=== PATIENT | female | born 1970 | race Caucasian/White ===

== ENCOUNTER 2020-03-24 00:09 | Outpatient (CLI) | payer BC, SELFPAY ==
[2020-03-24 19:22] LABS: SARS-CoV-2 RNA PCR Negative
== END 2020-03-24 00:10 | disposition home or self-care (01) ==
LOC: ANHCOVIDDT 00:10
PROVIDERS: Visit Provider Internal Medicine Gastroenterology
DX: Z01.818 Encounter for other preprocedural examination (principal); Z11.59 Encounter for screening for other viral diseases
CPT/HCPCS: 87635; C9803; U0003

== ENCOUNTER 2020-03-27 02:05 | Day surgery (SDC) | payer BC, SELFPAY ==
[2020-03-21 11:33] VITALS: BMI 32.5
[2020-03-27 07:45] VITALS: BP 110/70; PULSE 53; RESP 14; TEMP 36.1; O2SAT 99; BMI 33.1
--- NOTE | 2020-03-27 07:46 | PM.HPGS ---
History of Present Illness History of Present Illness Consent: Risks, benefits, and alternatives have been discussed and questions answered. Patient agrees to proceed with procedure. Chief complaint: Neoplasm Screening Narrative: Niharika Sanchez is a 49 year old W female referred for 1st screening colonoscopy. Patient is asymptomatic and there is no known family history of colon polyps or colon cancer. [facility] Family History Family History Mother Hypertension Father Family history of pancreatic cancer Other Family history of malignant neoplasm Social History Social History Smoking status: Never smoker Alcohol intake: current Meds Home Medications and Allergies Home Medications Medication Instructions Recorded Confirmed Type No Home Medications 03/21/20 03/21/20 History Allergies Allergy/AdvReac Type Severity Reaction Status Date / Time No Known Allergies Allergy Unknown Verified 03/27/20 07:45 Exam Const: Orientation/consciousness: patient oriented x3 Resp: Auscultation: clear to auscultation bilaterally Cardio: Rate: regular rate Rhythm: regular rhythm Heart sounds: no murmurs GI: GI Palp: Yes Soft to palpation, No Tenderness to palpation present (GI), Yes No hepatosplenomegaly present and No Palpable mass present Auscultation: normal bowel sounds Neuro: General: patient oriented x3 and no focal motor deficits Extrem: General: no pedal edema Assessment and Plan Additional Plan Screening colonoscopy in average risk patient
--- NOTE | 2020-03-27 07:56 | WPDANESEPPF ---
Anes - Initial Pre Proc Eval Procedure: Operation Date: 03/27/20 09:00 Proposed Procedures p Screening Colonoscopy - Junior Rodriguez MD Date/Time: 03/27/20 07:56 Surgeon: Junior Rodriguez MD Pre Op Diagnosis: Neoplasm Screening Patient Data Age: 49 Gender: F Height: 5 ft 9 in Weight: 101.9 kg Last Vital Signs Temp 36.1 C L 03/27/20 07:45 Pulse 53 L 03/27/20 07:45 Resp 14 03/27/20 07:45 BP 110/70 03/27/20 07:45 Pulse Ox 99 03/27/20 07:45 Allergies Allergy/AdvReac Type Severity Reaction Status Date / Time No Known Allergies Allergy Unknown Verified 03/27/20 07:45 Home Medications Medication Instructions Recorded Confirmed Type No Home Medications 03/21/20 03/21/20 History Patient hx anesthesia problems: none Family hx anesthesia problems: none PMFSH Past Medical History Medical History (Updated 03/27/20 @ 07:57 by Stepan Laird MD) SVT (supraventricular tachycardia) Family History Family History Mother Hypertension Father Family history of pancreatic cancer Other Family history of malignant neoplasm Social History Social History Smoking status: Never smoker Alcohol intake: current Anes - Eval Final PreProcedure Day of Procedure 03/27/20 07:56 Patient weight: obese Heart: regular rate and rhythm Lungs: clear to auscultation Airway: Mallampati scale class II Neurological: alert and oriented Last oral intake: >/= 8 hours ASA classification: II Emergent: no Anesthetic plan: proceed Anesthesia type and monitoring: general GIVS and standard monitoring Informed Consent: The patient's anesthetic plan and its attendant risks and benefits were discussed with the patient/family/POA. Questions were solicited and answers provided to the satisfaction of the patient/family/POA.
[2020-03-27] MEDS: LACTATED RINGERS 1,000 ML 150 ML IV CONT (07:57)
[2020-03-27] MEDS: CENTRAL LINE FLUSH 12 ML XX (09:19)
--- NOTE | 2020-03-27 09:29 | SUR.OPER ---
Addendum entered by Marge Reyes RN 03/27/20 09:32: CLIP X3 LOT [id number] EXP 2022-11-22 Original Note: RESOLUTION CLIP PLACED X2 [id number] EXP 2022-11-22
--- NOTE | 2020-03-27 09:33 | SUR.OPER ---
RESOLUTION CLIP X1 LOT [id number] EXP 2022-11-23, CLIP X1 LOT [id number] EXP 2022-11-22. FIVE CLIPS TOTAL
[2020-03-27 09:42] VITALS: BP 109/70; PULSE 58; RESP 22; O2SAT 95
[2020-03-27 09:52] VITALS: BP 108/70; PULSE 54; RESP 19; O2SAT 97
[2020-03-27 10:02] VITALS: BP 134/70; PULSE 55; RESP 17; O2SAT 100
== END 2020-03-27 10:09 | disposition home or self-care (01) ==
PROVIDERS: Referring Provider Obstetrics & Gynecology Gynecology; Visit Provider Internal Medicine Gastroenterology
PROC: 0DJD8ZZ Inspection of Lower Intestinal Tract, Via Natural or Artificial Opening Endoscopic (ICD-10-PCS; CPT 45378; principal; 2020-03-27 09:00)
DX: Z12.11 Encounter for screening for malignant neoplasm of colon (principal); D12.8 Benign neoplasm of rectum; E66.9 Obesity, unspecified; Z68.33 Body mass index [BMI] 33.0-33.9, adult
CPT/HCPCS: 45381; 45385; 88305; J2704; J7120

== ENCOUNTER → 2020-05-02 10:41 | Outpatient (CLI) | payer BC, SELFPAY ==
--- NOTE | ~2020-05-02 | MM_ITS ---
EXAMINATION: MM screening [facility] BI w shane HISTORY: Screening mammogram TECHNIQUE: Craniocaudal and mediolateral oblique 3-D tomosynthesis images were obtained and synthetic 2-D images were generated. CAD analysis was submitted and interpreted. COMPARISON: 12/15/2018, 09/30/2017, 09/24/2016 BREAST PARENCHYMAL COMPOSITION: The breasts are heterogeneously dense, which may obscure small masses . FINDINGS: There is no evidence of suspicious mass, calcification, or architectural distortion to sugg est malignancy in either breast. There has been no suspicious interval change. IMPRESSION: 1. No mammographic evidence of malignancy. 2. Recommend routine screening mammography in one year. BI-RADS Category 1: Negative Reviewed, dictated and finalized at location A.
== END ==
PROVIDERS: Visit Provider Nurse Practitioner
DX: Z12.31 Encounter for screening mammogram for malignant neoplasm of breast (principal)
CPT/HCPCS: 77063; 77067

== ENCOUNTER 2020-06-28 03:53 | Outpatient (CLI) | payer BC, SELFPAY ==
[2020-06-28 19:05] LABS: SARS-CoV-2 RNA PCR Negative
== END 2020-06-28 03:54 | disposition home or self-care (01) ==
LOC: ANHCOVIDDT 03:53
PROVIDERS: PCP Obstetrics & Gynecology Gynecology; Visit Provider Internal Medicine Gastroenterology
DX: Z01.812 Encounter for preprocedural laboratory examination (principal); Z20.828 Contact with and (suspected) exposure to other viral communicable diseases
CPT/HCPCS: 87635; C9803; U0003

== ENCOUNTER 2020-06-30 01:08 | Day surgery (SDC) | payer BC, SELFPAY ==
[2020-06-26 10:44] VITALS: BMI 32.5
[2020-06-30 07:04] VITALS: BP 117/76; RESP 16; TEMP 36.5; O2SAT 99; BMI 32.6
--- NOTE | 2020-06-30 07:04 | PM.HPGS ---
History of Present Illness History of Present Illness Consent: Risks, benefits, and alternatives have been discussed and questions answered. Patient agrees to proceed with procedure. Chief complaint: Rectal Polyp Narrative: Niharika Sanchez is a 49 year old W female undergoing flexible sigmoidoscopy for evaluation of the large rectal polyp which was removed piecemeal fashion in March of this year. Patient is asymptomatic. She states she cannot tolerate the procedure polyps sedation was and she will give her mild sedation for there been no interval changes. PMFSH Past Medical History Medical History SVT (supraventricular tachycardia) Family History Family History Mother Hypertension Father Family history of pancreatic cancer Other Family history of malignant neoplasm Social History Social History Smoking status: Never smoker Alcohol intake: current Substance use type: does not use Living arrangements: with family Gender identity (if verbalized by the patient): Female Sexual Orientation (if Verbalized by the Patient): Straight or Heterosexual Spiritual care concerns: No Meds Home Medications and Allergies Home Medications Medication Instructions Recorded Confirmed Type multivit with min-folic acid 1 tablet PO DAILY 06/26/20 06/26/20 History [Adult One Daily Multivitamin] Allergies Allergy/AdvReac Type Severity Reaction Status Date / Time No Known Allergies Allergy Unknown Verified 06/30/20 07:02 Exam Const: Orientation/consciousness: patient oriented x3 Resp: Auscultation: clear to auscultation bilaterally Cardio: Rate: regular rate Rhythm: regular rhythm Heart sounds: no murmurs GI: GI Palp: Yes Soft to palpation, No Tenderness to palpation present (GI), Yes No hepatosplenomegaly present and No Palpable mass present Auscultation: normal bowel sounds Neuro: General: patient oriented x3 and no focal motor deficits Extrem: General: no pedal edema Assessment and Plan Additional Plan Flexible sigmoidoscopy for evaluation of polypectomy site in the rectum secondary to piecemeal removal of a tubulovillous adenoma 3 months ago.
[2020-06-30] MEDS: LACTATED RINGERS 1,000 ML 150 ML IV CONT (07:13)
[2020-06-30 08:18] VITALS: BP 103/81; PULSE 51; RESP 16; O2SAT 97
[2020-06-30 08:28] VITALS: BP 116/75; PULSE 50; RESP 19; O2SAT 100
[2020-06-30 08:38] VITALS: BP 122/75; PULSE 55; RESP 19; O2SAT 99
== END 2020-06-30 08:48 | disposition home or self-care (01) ==
PROVIDERS: Referring Provider Obstetrics & Gynecology Gynecology; Visit Provider Internal Medicine Gastroenterology
PROC: 0DJD8ZZ Inspection of Lower Intestinal Tract, Via Natural or Artificial Opening Endoscopic (ICD-10-PCS; CPT 45330; principal; 2020-06-30 08:00)
DX: D12.8 Benign neoplasm of rectum (principal); D12.4 Benign neoplasm of descending colon; I47.1 Supraventricular tachycardia; Z80.0 Family history of malignant neoplasm of digestive organs
CPT/HCPCS: 45338; 88305; J2704; J7120

== ENCOUNTER → 2021-05-09 13:14 | Outpatient (CLI) | payer BC, SELFPAY ==
--- NOTE | ~2021-05-09 | DEXA_ITS ---
Bone Density Report Name: Niharika Sanchez Age: 50 Sex: Female Ethnicity: White Date of : 1970 Indication: postmenopausal; screening for osteoporosis; height loss; Referring Provider: Simeon*Omayra Velasquez Study: Bone densitometry was performed. Exam Date: May 09, 2021 Accession number: [id number] Bone Density: Region BMD T-score Z-score Classification AP Spine (L1-L4) 1.038 -0.1 0.8 Normal Femoral Neck (Left) 0.797 -0.5 0.4 Normal Total Hip (Left) 0.895 -0.4 0.2 Normal Femoral Neck (Right) 0.807 -0.4 0.5 Normal Total Hip (Right) 0.897 -0.4 0.2 Normal Total Hip Mean 0.896 -0.4 0.2 Normal World Health Organization criteria for BMD impression classify patients as: Normal (T-score at or above -1.0), Osteopenia (T-score between -1.0 and -2.5), or Osteoporosis (T-score at or below -2.5). 10-year Fracture Risk: FRAX not reported because: All T-scores for Spine Total, Hip Total, Femoral Neck at or above -1.0 Clinical Information Provided by Patient: Has used the following medications: Vitamin D, MTV Patient maximum height was 69 Menopause Age: 47 Drinks caffeinated beverages Onset of menses at age 9 Number of children 3 Impression: The patient has normal bone mass. Discussion: BONE DENSITY IS ABOVE THE MINIMUM DESIRABLE LEVEL AT ALL SKELETAL SITES TESTED. This patient?s bone mineral density is above the minimum desirable level (T-score -1.0 or better) at all sites measured. The patient should follow a healthful lifestyle (good nutrition with adequate calcium and vitamin D, and appropriate weight-bearing exercise). Follow-Up: Consider repeating this study in 5 years or sooner if there is some new clinical indication. Reported by: ABDULLAHI on 05/09/2021 1:37:00 PM. Reviewed, dictated and finalized at location AShari SEN
--- NOTE | ~2021-05-09 | MM_ITS ---
EXAMINATION: MM screening [facility] BI w shane HISTORY: Screening TECHNIQUE: Craniocaudal and mediolateral oblique 3-D tomosynthesis images were obtained and synthetic 2-D images were generated. CAD analysis was submitted and interpreted. COMPARISON: Comparison to multiple prior studies sequentially, with oldest reviewed study dated 11/2013. BREAST PARENCHYMAL COMPOSITION: The breasts are heterogeneously dense, which may obscure small masses . FINDINGS: There are developing bilateral breast asymmetries in the upper outer quadrant of both breas ts. There are no suspicious calcifications or architectural distortion. IMPRESSION: 1. Developing bilateral breast asymmetries. 2. Additional mammographic views and possible breast ultrasound are recommended. BI-RADS Category 0: Incomplete: Needs additional imaging evaluation. Reviewed, dictated and finalized at location A. IMPRESSION: 1. Developing bilateral breast asymmetries. 2. Additional mammographic views and possible breast ultrasound are recommended . BI-RADS Category 0: Incomplete: Needs additional imaging evaluation.
== END ==
PROVIDERS: PCP Family Medicine; Visit Provider Nurse Practitioner
DX: Z12.31 Encounter for screening mammogram for malignant neoplasm of breast (principal); Z13.820 Encounter for screening for osteoporosis; R92.8 Other abnormal and inconclusive findings on diagnostic imaging of breast
CPT/HCPCS: 77063; 77067; 77080

== ENCOUNTER → 2021-06-12 08:49 | Outpatient (CLI) | payer BC, SELFPAY ==
--- NOTE | ~2021-06-12 | MMUS_ITS ---
EXAMINATION: MM diagnostic [facility] BI w shane, US breast BI limited HISTORY: Possible breast masses on screening mammogram TECHNIQUE: Additional 3-D tomosynthesis images of the breasts were performed and synthetic 2-D images were generated. CAD analysis was submitted and interpreted. High resolution limited bilateral breast ultrasound was performed. COMPARISON: 05/09/2021, 05/02/2020, 12/15/2018 FINDINGS: MAMMOGRAPHIC FINDINGS: There is a return to baseline fibroglandular appearance with spot compression of the breasts in the a reas questioned on screening mammogram. ULTRASOUND: There is a 5 mm x 3 mm oval, circumscribed, parallel, hypoechoic mass with no posterior features or i nternal vascularity at the 12:00 location 6 cm from the nipple in the right breast. There is a 10 mm x 3 mm oval, circumscribed, parallel, complex cystic and solid mass at the 1:30 location 7 cm from th e nipple in the left breast with no posterior features or internal vascularity. A 5 mm x 3 mm oval, c ircumscribed, parallel, hypoechoic mass with no posterior features or internal vascularity is present at the 2:00 location 7 cm from the nipple in the left breast. IMPRESSION: 1. Probably benign bilateral breast masses. 2. Recommend 6 month follow-up bilateral diagnostic mammogram and ultrasound. BI-RADS category 3, probably benign findings. Reviewed, dictated and finalized at location A. IMPRESSION: 1. Probably benign bilateral breast masses. 2. Recommend 6 month follow-up bilateral diagnostic mammogram and ultrasound. BI-RADS category 3, probably benign findings.
== END ==
PROVIDERS: Visit Provider Obstetrics & Gynecology Gynecology
DX: R92.8 Other abnormal and inconclusive findings on diagnostic imaging of breast (principal); N60.02 Solitary cyst of left breast; N63.21 Unspecified lump in the left breast, upper outer quadrant
CPT/HCPCS: 76642; 77062; 77066; G0279

== ENCOUNTER → 2021-12-18 08:31 | Outpatient (CLI) | payer BC, SELFPAY ==
--- NOTE | ~2021-12-18 | MMUS_ITS ---
EXAMINATION: MM diagnostic [facility] BI w shane, US breast BI limited HISTORY: Six-month follow-up of probably benign bilateral breast masses reported on 06/12/2021 bilater al Limited ultrasound examination TECHNIQUE: Additional 3-D tomosynthesis images of were performed and synthetic 2-D images were genera inocente. CAD analysis was submitted and interpreted. High resolution limited bilateral breast ultrasound was performed. COMPARISON: 06/12/2021 bilateral diagnostic mammography and Limited bilateral breast ultrasound BREAST PARENCHYMAL COMPOSITION: The breasts are heterogeneously dense, which may obscure small masses . FINDINGS: MAMMOGRAPHIC FINDINGS: No suspicious mass or architectural distortion, malignant calcification, skin thickening or retractio n or significant new or developing density is detected. ULTRASOUND: Right breast: 12:00 6 cm from nipple: Circumscribed sonolucent lesion measuring approximately 3.4 x 4 mm, without i nternal vascularity or posterior shadowing 11:00 3 cm from nipple: 2.6 x 3.5 x 3.9 mm sonolucency, without internal vascularity or posterior sha dowing 10:00 7 cm from nipple: 1.7 x 3.1 x 3.6 mm circumscribed hypoechoic lesion without internal vasculari ty or posterior shadowing Left breast: 2:00 7 cm from nipple: 3.6 x 6.1 mm multi septated cyst 2:00 7 cm from nipple: 3.2 x 3.1 mm cyst with through transmission posterior enhancement 2:00 7 cm from nipple: Mildly irregular mixed echogenicity approximately 4.6 x 4.1 x 5 mm oval lesion , with solid and small fatty and small cystic component, without internal vascularity or suspicious s hadowing, likely benign. Six-month follow-up ultrasound examination of the left breast is recommended . 3:00 5 cm from nipple: Parallel circumscribed 1.5 x 3.9 mm cyst IMPRESSION: 1. Probable benign breast masses 2. Six-month ultrasound follow-up of left breast is recommended., With attention to 2:00 7 cm from ni pple BI-RADS category 3, probably benign findings. Reviewed, dictated and finalized at location A. IMPRESSION: 1. Probable benign breast masses 2. Six-month ultrasound follow-up of left breast is recommended., With attentio n to 2:00 7 cm from nipple BI-RADS category 3, probably benign findings.
== END ==
PROVIDERS: Visit Provider Obstetrics & Gynecology Gynecology
DX: R92.8 Other abnormal and inconclusive findings on diagnostic imaging of breast (principal)
CPT/HCPCS: 76642; 77062; 77066; G0279

== ENCOUNTER → 2022-06-19 08:57 | Outpatient (CLI) | payer BC, SELFPAY ==
--- NOTE | ~2022-06-19 | US_ITS ---
US breast LT limited 06/19/2022 09:23 Indication: Left breast pain Procedure: High-resolution Limited ultrasound of the left breast Comparison: Ultrasound dated 12/18/2021 Findings: At 2:00, 7 cm from the nipple there is a 3 mm cyst. At 2:00, 7 cm from the nipple there is an oval hypoechoic mass measuring 5 x 6 x 3 mm, stable or slightly decreased in size compared with pr ior examination. There is an echogenic hilum, compatible with a benign intramammary lymph node. At 2: 00, 7 cm from the nipple, there is a round hypoechoic mass measuring 5 x 4 x 4 mm with mixed posterio r attenuation and no significant internal vascularity. This mass appears unchanged from prior examina tion allowing for differences of technique. At 3:00, 5 cm from the nipple there is a 4 mm cyst. There is an additional cyst at this location measuring 4 mm. Impression: 1: Stable probable benign left breast masses. BI-RADS CATEGORY 3-PROBABLY BENIGN FINDING RECOMMENDATION: Six-month follow-up digital diagnostic bilateral mammogram and Limited left breast ul trasound. Reviewed, dictated and finalized at location A. Impression: 1: Stable probable benign left breast masses. BI-RADS CATEGORY 3-PROBABLY BENIGN FINDING RECOMMENDATION: Six-month follow-up digital diagnostic bilateral mammogram and Limited left breast ultrasound.
== END ==
PROVIDERS: PCP Obstetrics & Gynecology Gynecology; Visit Provider Obstetrics & Gynecology Gynecology
DX: R92.8 Other abnormal and inconclusive findings on diagnostic imaging of breast (principal); N63.21 Unspecified lump in the left breast, upper outer quadrant; N60.02 Solitary cyst of left breast
CPT/HCPCS: 76642

== ENCOUNTER 2022-12-20 09:24 | Outpatient (CLI) | payer BC, SELFPAY ==
--- NOTE | ~2022-12-20 | MMUS_ITS ---
EXAMINATION: US breast LT limited, MM diagnostic [facility] BI w shane HISTORY: Follow-up of probable benign left breast masses TECHNIQUE: ML, MLO and CC 3-D tomosynthesis images of both breasts were performed and synthetic 2-D i mages were generated. CAD analysis was submitted and interpreted. High resolution targeted left breas t ultrasound was performed. COMPARISON: 06/19/2022 Limited left breast ultrasound 12/18/2021 diagnostic bilateral mammogram and Limited bilateral breast ultrasound FINDINGS: MAMMOGRAPHIC FINDINGS: No suspicious mass or architectural distortion, malignant calcification, skin thickening or retractio n or significant new or developing density is detected. ULTRASOUND: 2:00 7 cm from nipple: 2.2 x 7.1 x 6.4 mm parallel circumscribed hypoechoic lesion without internal v ascularity, with through transmission, benign in appearance 3:00 5 cm from nipple: Parallel circumscribed 1.4 x 4.6 x 5.6 mm sonolucency with through transmissio n 3:00 5 cm from nipple: 1 x 3.6 x 2.7 mm parallel circumscribed sonolucency without internal vasculari ty or shadowing, benign in appearance No suspicious sonographic mass or shadowing is detected.. IMPRESSION: 1. Benign findings; no mammographic evidence of malignancy 2. Routine annual mammographic screening is recommended BI-RADS Category 2: Benign finding(s). Reviewed, dictated and finalized at location A. IMPRESSION: 1. Benign findings; no mammographic evidence of malignancy 2. Routine annual mammographic screening is recommended BI-RADS Category 2: Benign finding(s).
== END 2022-12-20 09:25 ==
PROVIDERS: PCP Obstetrics & Gynecology Gynecology; Visit Provider Obstetrics & Gynecology Gynecology
DX: R92.2 Inconclusive mammogram (principal); N63.20 Unspecified lump in the left breast, unspecified quadrant
CPT/HCPCS: 76642; 77062; 77066; G0279

== ENCOUNTER 2023-12-23 11:34 | Outpatient (CLI) | payer OTHER, SELFPAY ==
--- NOTE | ~2023-12-23 | MM_ITS ---
EXAMINATION: MM screening [facility] BI w shane HISTORY: Screening TECHNIQUE: Craniocaudal and mediolateral oblique 3-D tomosynthesis images were obtained and synthetic 2-D images were generated. CAD analysis was submitted and interpreted. COMPARISON: Comparison to multiple prior studies sequentially, with oldest reviewed study dated 05/2019. BREAST PARENCHYMAL COMPOSITION: Dense: The breasts are heterogeneously dense, which may obscure small masses FINDINGS: There are developing nodular asymmetries laterally in the left breast on CC view. The right breast is stable without evidence for malignancy. IMPRESSION: 1. Developing nodular asymmetries of the left breast. 2. Additional mammographic views and possible breast ultrasound are recommended. BI-RADS Category 0: Incomplete: Needs additional imaging evaluation. Reviewed, dictated and finalized at location B. IMPRESSION: 1. Developing nodular asymmetries of the left breast. 2. Additional mammographic views and possible breast ultrasound are recommended . BI-RADS Category 0: Incomplete: Needs additional imaging evaluation.
== END 2023-12-23 11:35 ==
LOC: MICIMG 11:35
PROVIDERS: PCP Nurse Practitioner; Visit Provider Nurse Practitioner
DX: Z12.31 Encounter for screening mammogram for malignant neoplasm of breast (principal); N64.89 Other specified disorders of breast
CPT/HCPCS: 77063; 77067

== ENCOUNTER 2024-02-03 08:48 | Outpatient (CLI) | payer OTHER, SELFPAY ==
--- NOTE | ~2024-02-03 | MMUS_ITS ---
EXAMINATION: MM diagnostic [facility] LT w shane, US breast LT limited HISTORY: Follow-up left breast asymmetries TECHNIQUE: Additional 3-D tomosynthesis images of the left breast were performed and synthetic 2-D im ages were generated. CAD analysis was submitted and interpreted. High resolution Limited left breast ultrasound was performed. COMPARISON: Comparison to multiple prior studies sequentially, with oldest reviewed study dated 05/02. BREAST PARENCHYMAL COMPOSITION: Dense: The breasts are heterogeneously dense, which may obscure small masses FINDINGS: MAMMOGRAPHIC FINDINGS: There are no suspicious masses, calcifications or architectural distortion in the left breast to sugg est malignancy. ULTRASOUND: Limited left breast ultrasound: At 1-2:00, 7 cm from the nipple, there is an oval hypoechoic 7 mm mas s with internal echoes genic hilum, most likely benign intramammary lymph node. At 3:00, 7 cm from th e nipple there is a 5 mm cyst. No other masses are identified. IMPRESSION: 1. Probable benign intramammary lymph node of the left breast at 1-2:00, 7 cm from the nipple. 2. Recommend 6 month follow-up Limited left breast ultrasound BI-RADS category 3, probably benign findings. Reviewed, dictated and finalized at location B. IMPRESSION: 1. Probable benign intramammary lymph node of the left breast at 1-2:00, 7 cm f rom the nipple. 2. Recommend 6 month follow-up Limited left breast ultrasound BI-RADS category 3, probably benign findings.
== END 2024-02-03 08:49 ==
LOC: MICIMG 08:49
PROVIDERS: PCP Nurse Practitioner; Visit Provider Obstetrics & Gynecology Gynecology
DX: R92.8 Other abnormal and inconclusive findings on diagnostic imaging of breast (principal)
CPT/HCPCS: 76642; 77061; 77065; G0279

== ENCOUNTER 2024-08-12 08:29 | Outpatient (CLI) | payer OTHER, SELFPAY ==
--- NOTE | ~2024-08-12 | US_ITS ---
US breast LT limited 08/12/2024 08:44 Indication: Follow-up left breast mass. Procedure: High-resolution Limited ultrasound of the left breast Comparison: 02/03/2024 Findings: At 1-2:00, 7 cm from the nipple there is an oval hypoechoic mass measuring 7 x 3 x 5 mm com pared with 7 x 3 x 4 mm on prior examination. No internal vascularity or significant posterior featur es. Parallel orientation. Impression: 1: Stable likely benign left breast mass measuring 7 mm L1-2 o'clock, 7 cm from the nipple. BI-RADS CATEGORY 3-PROBABLY BENIGN FINDING RECOMMENDATION: Six-month follow-up bilateral mammogram and Limited left breast ultrasound recommende d. Reviewed, dictated and finalized at location B. [employer] Impression: 1: Stable likely benign left breast mass measuring 7 mm L1-2 o'clock, 7 cm from the nipple. BI-RADS CATEGORY 3-PROBABLY BENIGN FINDING RECOMMENDATION: Six-month follow-up bilateral mammogram and Limited left breast ultrasound recommended.
== END 2024-08-12 08:30 | disposition home or self-care (01) ==
LOC: MICIMG 08:30
PROVIDERS: PCP Obstetrics & Gynecology Gynecology; Visit Provider Obstetrics & Gynecology Gynecology
DX: R92.8 Other abnormal and inconclusive findings on diagnostic imaging of breast (principal)
CPT/HCPCS: 76642

== ENCOUNTER 2025-03-04 08:29 | Outpatient (CLI) | payer OTHER, SELFPAY ==
--- NOTE | ~2025-03-04 | MMUS_ITS ---
EXAMINATION: MM diagnostic [facility] BI w shane, US breast LT limited HISTORY: Probable benign left breast mass TECHNIQUE: 3-D tomosynthesis images of the breasts were performed and synthetic 2-D images were gener ated. CAD analysis was submitted and interpreted. High resolution limited left breast ultrasound was performed. COMPARISON: 08/12/2024, 02/03/2024, 12/23/2023, 12/20/2022 BREAST PARENCHYMAL COMPOSITION:Dense: The breasts are heterogeneously dense, which may obscure small masses. FINDINGS: MAMMOGRAPHIC FINDINGS: Parenchymal pattern of both breasts is unchanged. No suspicious mass lesion or distortion seen in eit her breast. No suspicious microcalcifications. ULTRASOUND: At the 1:00-12:00 position left breast, 7 cm from the nipple, there is a 9 mm reniform lymph node wit h fatty hilum. No other abnormality seen in the region scanned. IMPRESSION: No evidence for malignancy. Benign intramammary lymph node, as detailed above. BI-RADS Category 2: Benign finding(s). Reviewed, dictated and finalized at location . IMPRESSION: No evidence for malignancy. Benign intramammary lymph node, as detailed above. BI-RADS Category 2: Benign finding(s).
== END 2025-03-04 08:30 | disposition home or self-care (01) ==
LOC: MICIMG 08:29
PROVIDERS: PCP Obstetrics & Gynecology Gynecology; Visit Provider Obstetrics & Gynecology Gynecology
DX: Z12.31 Encounter for screening mammogram for malignant neoplasm of breast (principal); R92.8 Other abnormal and inconclusive findings on diagnostic imaging of breast
CPT/HCPCS: 76642; 77062; 77066; G0279